=== PATIENT | female | born 1955 | race Caucasian/White ===

== ENCOUNTER 2019-11-11 12:16 | Emergency (ER) | payer BC, MEDICARE ==
[~2019-11-11] VITALS: Ht 162.6 cm; Wt 61.2 kg
[~2019-11-11 12:16] MED LIST: AMLODIPINE BESYL5 MG PO; HYDROCHLOROTHIA25 MG PO; PRAVACHOL40 MG PO; ZESTORETIC 20-251 EA PO
[2019-11-11] MEDS ORDERED: POTASSIUM CHLO20 ME1 PO (14:07)
[2019-11-11] MEDS ORDERED: ONDANSETRON ODT4 MG SL (14:07)
== END 2019-11-11 14:58 | disposition home or self-care (01) ==
LOC: ED 12:16
DX: R10.9 Unspecified abdominal pain (principal); E87.6 Hypokalemia; E87.1 Hypo-osmolality and hyponatremia; I10 Essential (primary) hypertension; E78.5 Hyperlipidemia, unspecified; F17.200 Nicotine dependence, unspecified, uncomplicated; Z79.899 Other long term (current) drug therapy
CPT/HCPCS: 74176; 80053; 81001; 85025; 96374; 96375; 99284-25; 99406; J1885; J2405; J7030

== ENCOUNTER 2020-03-31 06:32 | Day surgery (SDC) | payer MEDICARE, OTHER ==
[~2020-03-31] VITALS: Ht 162.6 cm; Wt 61.2 kg
[~2020-03-31 06:32] MED LIST changes: +LIPITOR20 MG PO; +ONDANSETRON ODT4 MG SL; +POTASSIUM CHLO20 ME1 PO; +SPIRIVA18 MCG INH
[2020-03-31] MEDS ORDERED: OMEPRAZOLE20 MG PO (06:49)
--- NOTE | 2020-03-31 08:07 | NUR ---
03/31/20 0807 Sydnee Turner 0755 PATIENT ARRIVES TO PACU AWAKE BUT VERY DROWSY. ASLEEP WHEN NOT STIMULATED, AWAKENS WITH VERBAL STIMULI. RESP EVEN AND UNLABORED, NC OFF ON ARRIVAL TO PACU. 0805 PATIENT SLEEPING. AWAKENS WITH VERBAL STIMULI. RESP EVEN AND UNLABORED. ROOM AIR SATS >93%. 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
--- NOTE | 2020-03-31 09:18 | OR ---
[facility] [address], [place] [address] Signed DATE OF OPERATION: 03/31/2020 SURGEON: Tari Ponce MD PREOPERATIVE DIAGNOSES: 1. Bilateral epigastric abdominal pain. 2. Recent Helicobacter pylori. POSTOPERATIVE DIAGNOSES: 1. Small duodenal polyp opposite to ampulla of Vater. 2. Lriek-hn-fjdrsbit sized hiatal hernia. 3. Moderate diffuse gastritis. 4. Possible 3 mm ulcerated lesion above vocal cord. PROCEDURES: Esophagogastroduodenoscopy with CLOtest and biopsy of the duodenal polyp, pyloric bulb, and antrum. ESTIMATED BLOOD LOSS: None. INDICATIONS: Zulay is a 64-year-old female, who has been a long-time smoker. She just [facility] from the [employer]. She down to about five or six cigarettes per day. She has been having bilateral subcostal abdominal pain and pain in her right back. A CT scan was performed actually for microscopic hematuria. She does have diverticulosis, but no other concerns. Her stool antigen had come back positive for H pylori. She has been treated for the H pylori and was feeling a little better. She said now the pain has returned. Consequently, she was asked to see me for upper endoscopy. Her pain is not related to any eating. She has declined colonoscopy in place of the Cologuard test. She gives no family history of colon cancer or polyps. In the office, I gave her a pamphlet on upper endoscopy. We looked at that together along with the risks including, but not limited to gas bloating, crampy abdominal pain, bleeding, perforation requiring surgery, and missed diagnosis. She also understands the need for IV conscious sedation, she had expressed understanding and wished to proceed. DESCRIPTION OF PROCEDURE: Zulay was taken into our endoscopy suite and placed in the supine semi-recumbent position. The posterior oropharynx was anesthetized with lidocaine spray. A bite block was utilized for the case. She was given a total of 7 mg of Versed and 100 mcg of Electronically Signed By: TARI PONCE MD 03/31/20 0918 PATIENT NAME: ZULAY DE LEON OPERATIVE REPORT DATE OF : 51 REPORT #: [id number] PHYSICIAN: TARI PONCE MD PCP: MARLO JACOB MD REPORT IS CONFIDENTIAL AND NOT TO BE RELEASED WITHOUT AUTHORIZATION [facility] [address], [place] [address] Signed fentanyl to cover the case. The adult gastroscope was introduced and advanced under direct visualization of camera without difficulty. We saw a polyp in her duodenum just opposite the ampulla of Vater. It was not particularly large, under a centimeter for sure. We took two biopsies of that with a cold biopsy forceps. It could be removed with the snare if necessary, otherwise duodenum appeared healthy. Very minimal irritation in the pyloric bulb with no ulcers. We took a biopsy of the bulb for pathologic review. The stomach did show diffuse erythematous changes consider with gastritis. No ulcerations in the stomach. We took a biopsy of the antrum for CLOtest as well as pathologic review. Upon retroflexion of scope, she does have a gmacw-nk-ystegroz sized hiatal hernia. The scope was withdrawn up to the GE junction, which was compliant without stricture. There was no gastric or esophageal varices. The Z-line was more or less intact. No Elaine's mucosa. No Elli-Banda tear. No ulcerations. The distal middle and upper esophagus were unremarkable. As we withdrew the scope, we saw just a very tiny may be 2 or 3 mm possible ulcerated lesion just above the vocal cords and then right next to the vocal cord was a mucoid-appearing lesion that may be mucus or it maybe a polyp. Both of these should probably be evaluated by Ear, Nose, and Throat surgeon, particularly with respect to her smoking history. After this, the gastroscope had been completely removed. Zulay tolerated the procedure quite well. RECOMMENDATIONS: I will see Zulay back in my office in 7 to 14 days to review her results including the two possible lesions slightly above the vocal cord. Tari Ponce MD ALB/MODL /[id number] cc: Marlo Jacob MD Copies: ~ Electronically Signed By: TARI PONCE MD 03/31/20 0918 PATIENT NAME: ZULAY DE LEON OPERATIVE REPORT DATE OF : 51 REPORT #: [id number] PHYSICIAN: TARI PONCE MD PCP: MARLO JACOB MD REPORT IS CONFIDENTIAL AND NOT TO BE RELEASED WITHOUT AUTHORIZATION
--- NOTE | 2020-04-01 16:12 | PATH ---
[facility] [address] [place], [place] [address] Signed SPECIMEN(S): A DUODENUM POLYP SPECIMEN(S): B PYLORIC BULB SPECIMEN(S): C ANTRUM SPECIMEN SOURCE: A. DUODENUM POLYP B. PYLORIC BULB C. ANTRUM CLINICAL HISTORY: Bilateral abdominal pain, subcostal pain, right back pain, + H. pylori. Post op: Gastritis, hiatal hernia. MICROSCOPIC DESCRIPTION: Histologic sections of all submitted blocks are examined by light microscopy. These findings, together with the gross examination, support the pathologic diagnosis. FINAL PATHOLOGIC DIAGNOSIS: A. Duodenum, polyp, polypectomy: - Submucosal fibroadipose tissue, consistent with submucosal lipoma. - Negative for dysplasia or malignancy. B. "Antrum, Pyloric bulb", biopsy: - Duodenal mucosa with Uri's gland hyperplasia. - Negative for dysplasia or malignancy. C. Stomach, antrum, biopsy: - Antral mucosa with chronic, inactive gastritis. - Negative for Helicobacter organisms on HE stain. - Negative for dysplasia or malignancy. NAL:cml:C2NR GROSS DESCRIPTION: Three specimens are received in three containers, labeled "SD." A. The specimen, labeled "SD, 1," and designated on the requisition "duodenum polypectomy," is received in formalin and consists of two tucker soft tissue fragments that measure 0.3 and 0.4 cm in greatest dimension. The specimen is entirely submitted in cassette (A1). B. The specimen, labeled "SD, 2," and designated on the requisition "antrum pyloric bulb," is received in formalin and consists of one tucker soft tissue fragment that measures 0.4 cm in greatest dimension. The specimen is entirely submitted in cassette (B1). C. The specimen, labeled "SD, 3," and designated on the requisition "antrum PATIENT NAME: ALEXIA DE LEON PATHOLOGY DATE OF : 51 REPORT #: [id number] PHYSICIAN: VERONIKA PATHOLOGY PCP: MARLO NI MD REPORT IS CONFIDENTIAL AND NOT TO BE RELEASED WITHOUT AUTHORIZATION [facility] [address] [place], [place] [address] Signed biopsy," is received in formalin and consists of one tuckre soft tissue fragment that measures 0.3 cm in greatest dimension. The specimen is entirely submitted in cassette (C1). AI (under the direct supervision of a pathologist) The Gross Description was prepared using a voice recognition system. The report was reviewed for accuracy; however, sound-alike word errors, addition and/or deletions may occur. If there is any question about this report, please contact Client Services. PERFORMING LABORATORY: The technical component was performed by [facility], [address] [place] [id number] (It Professional: Sandra West MD; CLIA# [id number]). [facility], [address] [address] (CLIA# [id number]). Diagnostician: Marge Vallecillo MD Pathologist Electronically Signed 04/01/2020 Copies: ~ PATIENT NAME: ALEXIA DE LEON PATHOLOGY DATE OF : 51 REPORT #: [id number] PHYSICIAN: VERONIKA PATHOLOGY PCP: MARLO NI MD REPORT IS CONFIDENTIAL AND NOT TO BE RELEASED WITHOUT AUTHORIZATION
== END 2020-03-31 09:00 | disposition home or self-care (01) ==
LOC: DS 06:32 → OPS 06:32 → DS 06:45 → OPS 09:00
PROVIDERS: ATTEND Colon & Rectal Surgery
PROC: 0DB78ZX Excision of Stomach, Pylorus, Via Natural or Artificial Opening Endoscopic, Diagnostic (ICD-10-PCS; 2020-03-31)
PROC: 0DB98ZX Excision of Duodenum, Via Natural or Artificial Opening Endoscopic, Diagnostic (ICD-10-PCS; principal; 2020-03-31 06:45)
DX: K29.50 Unspecified chronic gastritis without bleeding (principal); K44.9 Diaphragmatic hernia without obstruction or gangrene; K21.9 Gastro-esophageal reflux disease without esophagitis; E78.5 Hyperlipidemia, unspecified; F17.210 Nicotine dependence, cigarettes, uncomplicated; Z79.899 Other long term (current) drug therapy; Z88.8 Allergy status to other drugs, medicaments and biological substances; Z86.19 Personal history of other infectious and parasitic diseases
CPT/HCPCS: 86677; 99153; G0500; J2250; J3010; J7121

== ENCOUNTER 2020-06-09 09:36 | Day surgery (SDC) | payer MEDICARE, OTHER ==
[~2020-06-09] VITALS: Ht 162.6 cm; Wt 63.6 kg
--- NOTE | ~2020-06-09 | OR ---
[facility] [address] [place], [place] [address] Draft DATE OF OPERATION: 06/09/2020 SURGEON: Shawn Haley MD PREOPERATIVE DIAGNOSIS: Right vocal cord lesion. POSTOPERATIVE DIAGNOSIS: Right vocal cord lesion. PROCEDURE: Direct laryngoscopy, excision of right vocal cord lesion. ANESTHESIA: General orotracheal. SECONDARY CONNECTOR ARMATURE: Fermin. PREOPERATIVE HISTORY: Ms. Dumas is a 64-year-old lady with a vocal cord lesion. This was first identified by Dr. Funez during an upper GI endoscopy. Exam in the office had shown an exophytic polypoid lesion in the right vallecula. She is really not symptomatic, not having any voice changes, sore throat, etc. She is a smoker. She is taken to the operating room for the above-mentioned procedures. OPERATIVE PROCEDURE AND FINDINGS: After informed consent, the patient was taken to the operating room, placed in supine position where general orotracheal anesthesia was induced. The patient and procedure were verified. The Dedo laryngoscope was used to visualize the hypopharynx, larynx. All was normal except for the right vallecula. There was a polypoid mucosal benign-appearing lesion in the right vallecula with gentle suctioning. This lesion was pulled out, found to be fairly prominent in the midportion of the right vallecula. No other vocal cord or laryngeal lesions identified. This lesion measured about a quarter to a 3rd of the vocal cord length, mainly anterior to the midportion. The lesion was completely excised with cup forceps. Minimal bleeding stopped afterwards. Specimen sent to pathology. Laryngeal vocal cord ventricular anatomy was appeared to be normal afterwards except at this point of the biopsy site. The patient's pharynx and larynx were suctioned clear of blood secretions. Scope was removed. The patient was awakened, extubated, transported to recovery room in good condition. No complications. PATIENT NAME: ALEXIA DUMAS OPERATIVE REPORT DATE OF : 51 REPORT #: [id number] PHYSICIAN: SHAWN HALEY MD PCP: MARLO NI MD REPORT IS CONFIDENTIAL AND NOT TO BE RELEASED WITHOUT AUTHORIZATION [address] [address] Draft BLOOD LOSS: Minimal. SPECIMEN: To pathology. DRAINS: No drains. Shawn Haley MD GC/MODL /[id number] Copies: ~ PATIENT NAME: ALEXIA DUMAS OPERATIVE REPORT DATE OF : 51 REPORT #: [id number] PHYSICIAN: SHAWN HALEY MD PCP: MARLO NI MD REPORT IS CONFIDENTIAL AND NOT TO BE RELEASED WITHOUT AUTHORIZATION
[~2020-06-09 09:36] MED LIST changes: +INCRUSE ELLI62.5 MCG IH; +OMEPRAZOLE20 MG PO
--- NOTE | 2020-06-09 09:40 | NUR ---
PT ARRIVES TO THE UNIT WALKING INDEPENDENTLY AND PLACED IN RM 4. PT PROVIDED WITH WARM BLANKET.
--- NOTE | 2020-06-09 10:10 | NUR ---
PRE-PROCEDURE CHECK IN COMPLETE. PT RESTING IN LOCKED AND LOWERED BED, CALL LIGHT WITHIN REACH. NO FURTHER REQUESTS AT THIS TIME.
--- NOTE | 2020-06-09 11:00 | NUR ---
PT USED CALL LIGHT TO USE THE RESTROOM. PT AMBULATES INDEPENDENTLY TO THE RESTROOM WITH NO COMPLICATIONS. PT BACK RESTING IN LOCKED AND LOWERED BED, CALL LIGHT WITHIN REACH. WARM BLANKET PROVIDED, NO FURTHER REQUESTS AT THIS TIME.
--- NOTE | 2020-06-09 12:36 | NUR ---
06/09/20 1236 Sheets,Mónica 1224 PT ARRIVED TO PACU WITH NOISY AIRWAY, JAW THRUST AND HEAD TILT USED, WITH ORAL AIRWAY AND 6L VIA MASK IN PLACE. VSS. SUCTION USED WITH PINK/RED DRAINAGE, MINIMAL AMOUNT. 1229 PT WOKE TO TACTILE STIMULI AND ORAL AIRWAY REMOVED. PT COUGHING AND VSS. 1235 O2 REMOVED, PT SITTING IN HIGH FOLWERS AND DENIES PAIN AND NAUSEA. PLAN OF CARE DISCUSSED.
--- NOTE | 2020-06-09 12:52 | NUR ---
PT RETURNED TO DAY SURGERY RM 4 FROM PACU. PT RESTING IN LOCKED AND LOWERED BED, SIDE RAILS UP, CALL LIGHT WITHIN REACH. ICE WATER PROVIDED. NO FURTHER REQUESTS AT THIS TIME.
--- NOTE | 2020-06-09 13:33 | NUR ---
DISCHARGE INSTRUCTIONS REVIEWED WITH PT. PT UP TO USE THE RESTROOM. PT AMBULATES WITH STANDBY ASSIST AND VOIDS WITHOUT COMPLICATIONS. PT BACK IN RM 4, RESTING IN LOCKED AND LOWERED BED, CALL LIGHT WITHIN REACH. NO FURTHER REQUESTS AT THIS TIME.
--- NOTE | 2020-06-09 13:45 | NUR ---
PT STATES SHE IS READY TO GO HOME. DISCHARGE CRITERIA MET. PT IS GETTING DRESSED.
--- NOTE | 2020-06-09 14:00 | NUR ---
PT LEFT DAY SURGERY RM 4 VIA WHEELCHAIR. PT TRANSFERRED INDEPENDENTLY FROM WHEELCHAIR TO VEHICLE WITH NO COMPLICATIONS. FRIEND JOELLE PROVIDED TRANSPORTATION.
--- NOTE | 2020-06-10 13:58 | PATH ---
[facility] [address] [place], [place] [address] Signed SPECIMEN(S): A RIGHT VOCAL CORD LESION SPECIMEN SOURCE: A. RIGHT VOCAL CORD LESION CLINICAL HISTORY: Right vocal cord lesion. Direct laryngoscopy biopsy vocal cord lesion. FINAL PATHOLOGIC DIAGNOSIS: Vocal cord lesion, right, excision: - Fragments of vocal cord polyp(s) with myxoid change. NAL:cml:C2NR MICROSCOPIC EXAMINATION: Histologic sections of all submitted blocks are examined by light microscopy. These findings, together with the gross examination, support the pathologic diagnosis. GROSS DESCRIPTION: The specimen, labeled "SD, right vocal cord lesion," is received in formalin and consists of five pink-tucker, soft tissue fragments that range in size from 0.3-0.5 cm in greatest dimension. The specimen is submitted in toto in a single cassette (A1). JS (under the direct supervision of a pathologist) The Gross Description was prepared using a voice recognition system. The report was reviewed for accuracy; however, sound-alike word errors, addition and/or deletions may occur. If there is any question about this report, please contact Client Services. PERFORMING LABORATORY: The technical component was performed by [facility], [address] [place] [id number] (Cash Controller: Sandra West MD; CLIA# [id number]). [facility], [address] [address] (CLIA# [id number]). Diagnostician: Marge Vallecillo MD Pathologist Electronically Signed 06/10/2020 PATIENT NAME: ALEXIA DE LEON PATHOLOGY DATE OF : 51 REPORT #: [id number] PHYSICIAN: VERONIKA PATHOLOGY PCP: MARLO NI MD REPORT IS CONFIDENTIAL AND NOT TO BE RELEASED WITHOUT AUTHORIZATION [address] [place], [place] [address] Signed Copies: ~ PATIENT NAME: ALEXIA DE LEON PATHOLOGY DATE OF : 51 REPORT #: [id number] PHYSICIAN: INCYTE PATHOLOGY PCP: MARLO NI MD REPORT IS CONFIDENTIAL AND NOT TO BE RELEASED WITHOUT AUTHORIZATION
== END 2020-06-09 13:59 | disposition home or self-care (01) ==
LOC: DS 09:36 → OPS 09:36
PROVIDERS: ATTEND Otolaryngology
PROC: 0CBT8ZX Excision of Right Vocal Cord, Via Natural or Artificial Opening Endoscopic, Diagnostic (ICD-10-PCS; 2020-06-09)
PROC: 0CJS8ZZ Inspection of Larynx, Via Natural or Artificial Opening Endoscopic (ICD-10-PCS; principal; 2020-06-09 11:30)
DX: J38.1 Polyp of vocal cord and larynx (principal); I10 Essential (primary) hypertension; J43.9 Emphysema, unspecified; E78.00 Pure hypercholesterolemia, unspecified; K21.9 Gastro-esophageal reflux disease without esophagitis; F17.210 Nicotine dependence, cigarettes, uncomplicated; Z88.8 Allergy status to other drugs, medicaments and biological substances; Z79.899 Other long term (current) drug therapy
CPT/HCPCS: 00170; J1100; J1885; J2001; J2405; J2704; J3010; J7121

== ENCOUNTER 2021-08-05 12:47 | Emergency (ER) | payer MEDICARE, OTHER ==
[~2021-08-05] VITALS: Ht 162.6 cm; Wt 63.5 kg
--- OUTSIDE RECORDS SUMMARY | 2021-08-05 12:50 | XMS ---
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 Arely VISIT COUNT (12 MO.) [address] TOTAL 2 NOTE: Visits indicate total known visits. ED/UCC VISIT TRACKING (12 MO.) 08/05/2021 12:48 [facility] TYPE: Emergency COMPLAINT: - HIGH B/P, HEADACHE [facility] DIAGNOSES: - Essential (primary) hypertension - Hypertension INPATIENT VISIT TRACKING (12 MO.) No inpatient visits to display in this time frame [email or web address]
[2021-08-05] MEDS ORDERED: IRBESARTAN150 MG PO (16:13)
== END 2021-08-05 16:17 | disposition home or self-care (01) ==
LOC: ED 12:47
DX: I10 Essential (primary) hypertension (principal); E78.00 Pure hypercholesterolemia, unspecified; Z85.118 Personal history of other malignant neoplasm of bronchus and lung; F17.200 Nicotine dependence, unspecified, uncomplicated; Z88.8 Allergy status to other drugs, medicaments and biological substances; Z79.899 Other long term (current) drug therapy
CPT/HCPCS: 99283

== ENCOUNTER 2021-12-02 16:36 | Emergency (ER) | payer MEDICARE, OTHER ==
[~2021-12-02] VITALS: Ht 162.6 cm; Wt 54.4 kg
[~2021-12-02 16:36] MED LIST changes: +IRBESARTAN150 MG PO
[2021-12-02] MEDS ORDERED: ELIQUIS5 MG PO (16:51)
[2021-12-02] MEDS ORDERED: AMLODIPINE BESY10 MG PO (16:52)
--- NOTE | 2021-12-03 15:34 | EKG ---
[facility] [address] [facility] [place], [place] [address] Signed Normal sinus rhythm T wave abnormality, consider lateral ischemia Abnormal ECG No previous ECGs available Confirmed by AMBAR CEE MD ([id number]) on 12/03/2021 3:34:46 PM Electronically Signed By: AMBAR CEE MD 12/03/21 1534 PATIENT NAME: ALEXIA DE LEON Electrocardiogram DATE OF : 51 PHYSICIAN: AMBAR CEE MD REPORT #: [id number] REPORT IS CONFIDENTIAL AND NOT TO BE RELEASED WITHOUT AUTHORIZATION
== END 2021-12-02 20:04 | disposition home or self-care (01) ==
LOC: ED 16:36
DX: E86.0 Dehydration (principal); E78.00 Pure hypercholesterolemia, unspecified; I10 Essential (primary) hypertension; Z85.118 Personal history of other malignant neoplasm of bronchus and lung; F17.200 Nicotine dependence, unspecified, uncomplicated; Z88.8 Allergy status to other drugs, medicaments and biological substances; Z79.899 Other long term (current) drug therapy; Z79.01 Long term (current) use of anticoagulants
CPT/HCPCS: 36415; 80053; 85025; 93005; 93010; 96361; 96374; 99284-25; J7030